=== PATIENT | male | born 1935 | race Caucasian/White ===

== ENCOUNTER 2019-09-20 12:51 | Inpatient (IN) | payer MEDICARE, BC ==
[~2019-09-20] VITALS: Ht 182.9 cm; Wt 84.8 kg
--- NOTE | 2019-09-20 12:59 | NUR ---
PCP CALLED 911; THE PATIENT HAS FEVER AT THE OFFICE 100.2 F, THE PATIENT DENIES FEVER OR CHILLS, NO RECENT TRAVEL, NOT AROUND SICK PEOPLE, TO ER BED 8, HOOKED TO MONITOR, CHANGED TO HOSP GOWN, WARM BLANKET PROVIDED, DR ROSALES AT BEDSIDE
[2019-09-20 13:24] LABS: BASOPHILS % (AUTO) 0.4 % (0.0-2.0); HEMATOCRIT 47 % (39-51); LYMPHOCYTES # (AUTO) 0.4 /CMM (0.8-4.8); LYMPHOCYTES % (AUTO) 6.5 % (20.0-44.0); MEAN CORPUSCULAR HGB CONC 34 g/dl (31.0-36.0); MEAN CORPUSCULAR VOLUME 87 fL (80-96); MONOCYTES # (AUTO) 0.5 /CMM (0.1-1.30); MONOCYTES % (AUTO) 8.2 % (2.0-12.0); NEUTROPHILS # (AUTO) 5.3 /CMM (1.8-8.9); NEUTROPHILS % (AUTO) 84.9 % (43.0-81.0); PLATELET COUNT (AUTO) 137 /CMM (150-450); RED BLOOD CELL COUNT(AUTO) 5.41 MIL/uL (4.5-6.0); WHITE BLOOD COUNT (AUTO) 6.2 K/uL (4.3-11.0)
--- NOTE | 2019-09-20 13:40 | NUR ---
GREEN VIRUS SWAB DONE AND SENT TO LAB
[2019-09-20 13:41] LABS: ALANINE AMINOTRANSFERASE 12 U/L (12-78); ALBUMIN 3.6 g/dL (3.4-5.0); ALKALINE PHOSPHATASE 92 U/L (46-116); ASPARTATE AMINOTRANSFERASE 18 U/L (15-37); BILIRUBIN,DIRECT 0.5 mg/dL (0.0-0.2); BILIRUBIN,TOTAL 1.9 mg/dL (0.2-1.0); CALCIUM, SERUM 9.4 mg/dL (8.5-10.1); CARBON DIOXIDE 25 mmol/L (21-32); CHLORIDE 99 mmol/L (98-107); CREATININE 2.1 mg/dL (0.6-1.3); GLUCOSE 118 mg/dL (74-106); POTASSIUM 4.3 mmol/L (3.5-5.1); SODIUM SERUM 134 mmol/L (136-145); TOTAL PROTEIN, SERUM 7.3 g/dL (6.4-8.2); UREA NITROGEN, BLOOD 30 mg/dL (7-18)
[2019-09-20] MEDS ORDERED: VANCOMYCIN 1 GM in IV D5W 250 ML IV ONE (14:00)
[2019-09-20] MEDS ORDERED: CEFEPIME 1 GM in IV D5W 50 ML IV ONE (14:00)
--- NOTE | 2019-09-20 14:51 | NUR ---
PATIENT NOT ABLE TO PROVIDE URINE SAMPLE. MD ETIENNE
--- NOTE | 2019-09-20 15:18 | NUR ---
RECEIVED A CALL FROM LAB. PT IS COVID POSITIVE
--- NOTE | 2019-09-20 16:36 | NUR ---
ROOM 108
--- NOTE | 2019-09-20 16:41 | NUR ---
REPORT GIVEN TO TOMASA JOSÉ OF MS UNIT Addendum: 09/20/19 at 1642 by RBATACLAN REPORT GIVEN TO TOMASA JOSÉ OF TELE UNIT
--- NOTE | 2019-09-20 16:43 | NUR ---
PANEL INTELLIGENCE OPERATIONS PAGED
[2019-09-20] MEDS ORDERED: ACETAMINOPHEN 325 MG TABLET ONE (17:29)
[2019-09-20] MEDS ORDERED: ACETAMINOPHEN 325 MG TABLET PO ONE (17:30)
--- NOTE | 2019-09-20 17:39 | NUR ---
[employer] SOCIAL STUDIES TUTOR PAGED
[2019-09-20 18:11] LABS: C-REACTIVE PROTEIN 11.5 mg/dL (0.0-0.9)
--- NOTE | 2019-09-20 18:43 | NUR ---
RECEIVED PATIENT FROM ER,PAGED ALEC DIAZ FOR ADMISSION ORDERS.
[2019-09-20] MEDS ORDERED: Z GUARD REMEDY 2 OZ OINT TP PRN (19:00)
[2019-09-20] MEDS ORDERED: HYDROCODONE/APAP 5/325MG 1 EACH TABLET PO PRN (19:00)
[2019-09-20] MEDS ORDERED: ONDANSETRON HCL/PF 4 MG/2 ML VIAL IVP PRN (19:00)
[2019-09-20] MEDS ORDERED: ZOLPIDEM TARTRATE 5 MG TABLET PO PRN (19:00)
[2019-09-20] MEDS ORDERED: FEE PK DOSING 1 MIN EA MC ONE (19:18)
--- NOTE | 2019-09-20 19:21 | NUR ---
RN NOTES MADE PT COMFORTABLE, BELONGINGS LIST CHECKED OFF, VITAL SIGNS STABLE, ENDORSED TO ONCOMING SHIFT FOR ELOY
--- NOTE | 2019-09-20 19:30 | NUR ---
RN OPENING NOTE RECEIVED PATIENT IN BED RESTING,ALERT ORIENTED X4 VERBALLY RESPONSIVE KENYAN SPEAKER,ABLE TO MAKE NEEDS KNOWN,NO SOB NOT ACUTE DISTRESS NOTED AT THIS TIME,COVID 19 POSITIVE DROPLET/CONTACT ISOLATION,IV SITE IS ON LEFT AC PERIPHERAL,INTACT, PATENT,BED IN LOWEST POSITION,LOCKED CALL LIGHT WITHIN REACH,CONTINUE TO MONITOR.
[2019-09-20 20:00] VITALS: BP 116/81
[2019-09-20] MEDS: HEPARIN SODIUM, PORCINE 5000 UNITS/1 ML VIAL SQ SCH (21:17)
[2019-09-20] MEDS: IV NS 0.9% 1,000 ML IV PRN (23:31)
[2019-09-21] VITALS: BP 140/86
[2019-09-21] MEDS: CEFEPIME 2 GM in IV D5W 100 ML IV SCH ×2 (01:03→12:29)
[2019-09-21] MEDS: ACETAMINOPHEN 325 MG TABLET PO PRN ×2 (02:57→21:46)
[2019-09-21 04:00] VITALS: BP 120/74
--- NOTE | 2019-09-21 06:00 | NUR ---
RN NOTE URINE COLLECTED AND SENT TO LAB FOR URINE CULTURE.
--- NOTE | 2019-09-21 06:35 | NUR ---
RN CLOSING NOTE RESIDNET IS ALERT ORIENTED X4 VERBALLY RESPONSIVE,KYRGYZ SPEAKER,NO SOB NOT ACUTE DISTRESS NOTED,ON ROOM AIR O2:96% ,HE IS ON IV HYDRATION NS 0.9% @75CC/HR, IV SITE IS ON RIGHT AC INTACT PATENT, ON COVID 19 POSITIVE DROPLET/CONTACT ISOLATION, ALL DUE MEDS GIVEN MD ORDERED,KEPT CLEAN AND DRY ALL THE TIME,KEPT CALL LIGHT WITHIN REACH,ALL NEEDS ATTENDED. Addendum: 09/21/19 at 0649 by JOSELIN DUMONT RN RN CLOSING NOTE RESIDNET IS ALERT ORIENTED X4 VERBALLY RESPONSIVE,KYRGYZ SPEAKER,NO SOB NOT ACUTE DISTRESS NOTED,ON ROOM AIR O2:96% ,HE IS ON IV HYDRATION NS 0.9% @75CC/HR, IV SITE IS ON RIGHT AC INTACT PATENT, ON COVID 19 POSITIVE DROPLET/CONTACT ISOLATION, ALL DUE MEDS GIVEN MD ORDERED,KEPT CLEAN AND DRY ALL THE TIME,KEPT CALL LIGHT WITHIN REACH,ALL NEEDS ATTENDED, ENDORSE NEXT COMING SHIFT FOR CONTINUATION OF CARE.
[2019-09-21 06:41] LABS: BASOPHILS % (AUTO) 0.3 % (0.0-2.0); EOSINOPHILS % (AUTO) 0.4 % (0.0-6.0); HEMATOCRIT 43 % (39-51); HEMOGLOBIN 14.8 g/dL (13.5-17.5); LYMPHOCYTES # (AUTO) 0.5 /CMM (0.8-4.8); LYMPHOCYTES % (AUTO) 9.2 % (20.0-44.0); MEAN CORPUSCULAR HGB CONC 34 g/dl (31.0-36.0); MEAN CORPUSCULAR VOLUME 86 fL (80-96); MONOCYTES # (AUTO) 0.5 /CMM (0.1-1.30); MONOCYTES % (AUTO) 9.8 % (2.0-12.0); NEUTROPHILS # (AUTO) 4.5 /CMM (1.8-8.9); NEUTROPHILS % (AUTO) 80.3 % (43.0-81.0); PLATELET COUNT (AUTO) 118 /CMM (150-450); WHITE BLOOD COUNT (AUTO) 5.6 K/uL (4.3-11.0)
[2019-09-21 06:47] LABS: ALANINE AMINOTRANSFERASE 11 U/L (12-78); ALKALINE PHOSPHATASE 67 U/L (46-116); ASPARTATE AMINOTRANSFERASE 20 U/L (15-37); BILIRUBIN,TOTAL 1.3 mg/dL (0.2-1.0); CALCIUM, SERUM 8.3 mg/dL (8.5-10.1); CARBON DIOXIDE 22 mmol/L (21-32); CHLORIDE 99 mmol/L (98-107); CREATININE 1.8 mg/dL (0.6-1.3); GLUCOSE 112 mg/dL (74-106); MAGNESIUM 2.1 mg/dL (1.8-2.4); PHOSPHORUS 2.3 mg/dL (2.5-4.9); POTASSIUM 3.9 mmol/L (3.5-5.1); SODIUM SERUM 131 mmol/L (136-145); TOTAL PROTEIN, SERUM 6.2 g/dL (6.4-8.2); UREA NITROGEN, BLOOD 33 mg/dL (7-18)
[2019-09-21 06:51] LABS: D-DIMER 23.87 mg/L(FEU (0.17-0.50)
[2019-09-21 07:11] LABS: CHOLESTEROL 96 mg/dL (<200); CREATINE KINASE, TOTAL 285 U/L (39-308); FERRITIN 426 ng/mL (8-388); HDL CHOLESTEROL 33 mg/dL (40-60); LDL 66 mg/dL (0-99); THYROID STIMULATING HORMONE 1.384 uIU/mL (0.358-3.74); TRIGLYCERIDES 71 mg/dL (30-150)
[2019-09-21 07:42] LABS: C-REACTIVE PROTEIN 12.9 mg/dL (0.0-0.9)
[2019-09-21 08:00] VITALS: BP 131/91
--- NOTE | 2019-09-21 08:00 | NUR ---
WIPER BLENDER OPENING NOTES RECEIVED PATIENT IN BED RESTING,ALERT ORIENTED X4 VERBALLY RESPONSIVE. KOREAN SPEAKER BUT ABLE TO UNDERSTAND [place]. PT IS ON ISOLATION D/T POSITIVE COVID RESULTS. MAINTAINED ISOLATION PRECAUTIONS. NO CARDIAC OR RESPIRATORY DISTRESS NOTED. NO SOB NOTED. SATURATING WELL ON ROOM AIR. BREATHING EVEN AND UNLABORED. IV ACCESS NOTED ON THE R AC G18. INTACT AND PATNET ANF FLUSHING WELL. NO S/S OF INFECTION OR INFILTRATION NOTED. SAFETY PRECAUTIONS IN PLACE. BED LOCKED AND IN LOW POSITION. SIDE RAILS UP X2. BED ALARM ON. CALL LIGHT WITHIN REACH. WILL CONT TO MONITOR.
[2019-09-21] MEDS: HEPARIN SODIUM, PORCINE 5000 UNITS/1 ML VIAL SQ SCH (09:00)
[2019-09-21 09:51] LABS: APPEARANCE,URINE CLEAR (CLEAR); BILIRUBIN,URINE NEGATIVE (NEGATIVE); BLOOD, URINE MODERATE Ery/uL (NEGATIVE); COLOR,URINE YELLOW (YELLOW); KETONES,URINE NEGATIVE (NEGATIVE); LEUKOCYTE ESTERASE ,URINE NEGATIVE (NEGATIVE); NITRITE, URINE NEGATIVE (NEGATIVE); PROTEIN,URINE 100 mg/dl (NEGATIVE); UGLUCOSE NEGATIVE (NEGATIVE); UROBILINOGEN,URINE 0.2 EU/dL (0.2)
[2019-09-21 11:04] LABS: BACTERIA,URINE Few /HPF (None Seen); COARSE GRANULAR CASTS,URINE Few /LPF (None Seen); SQUAMOUS EPITHELIAL CELL,UR Few /HPF (None Seen)
[2019-09-21] MEDS: APIXABAN 2.5 MG TABLET PO SCH ×2 (13:27→21:47)
[2019-09-21] MEDS: VANCOMYCIN 1 GM in IV D5W 250 ML IV SCH (14:40)
[2019-09-21] MEDS: IV NS 0.9% 1,000 ML IV PRN (15:49)
--- NOTE | 2019-09-21 19:00 | NUR ---
HOME MEDS HOME MEDS PROVIDED BY [PT DAUGHTER JD FOLLOWS: TAMSULOSIN 0.4MG QD NORVASC 5MG QD ELIQUIS 5MG QD METOPROLOL 50MG QD CRESTOR 20MG QD VIT D3 1000UNITS QD VIT B12 1500MCG QD ENDORSED TO SENIOR FIELD ENGINEER NURSE TO INPUT IN EMR.
--- NOTE | 2019-09-21 19:35 | NUR ---
STOCK CLERK OPENING NOTES PATIENT SLEEPING, EASY TO AWAKEN. A/OX4. ON RA; NO S/S OF ACUTE RESPIRATORY DISTRESS; BREATHING IS EVEN AND UNLABORED. NO C/O PAIN AT THIS TIME. TELE MONITOR READING A-FIB HEART RATE 110. IV PRESENT ON RIGHT AC, SIZE 18, INTACT & PATENT, NS RUNNING AT 75 ML/HR. CONTACT AND DROPLET PRECAUTIONS IN PLACE FOR POSITIVE COVID 19. SAFETY MEASURES IN PLACE AND PATIENT'S NEEDS MET. BED LOCKED, ALARM ON, SIDE RAILS X2, CALL LIGHT WITHIN REACH. WILL CONTINUE TO MONITOR.
--- NOTE | 2019-09-21 19:58 | NUR ---
CITY LIBRARY DIRECTOR CLOSING NOTE PATIENT IN BED RESTING,ALERT ORIENTED X4 VERBALLY RESPONSIVE. HUNGARIAN SPEAKER BUT ABLE TO UNDERSTAND OCCITAN. PT IS ON ISOLATION D/T POSITIVE COVID RESULTS. PT REMAINED AFEBRILE. MAINTAINED ISOLATION PRECAUTIONS. NO CARDIAC OR RESPIRATORY DISTRESS NOTED. NO SOB NOTED. SATURATING WELL ON ROOM AIR. BREATHING EVEN AND UNLABORED. IV ACCESS NOTED ON THE R AC G18. INTACT AND PATNET ANF FLUSHING WELL. NO S/S OF INFECTION OR INFILTRATION NOTED. SAFETY PRECAUTIONS IN PLACE. BED LOCKED AND IN LOW POSITION. SIDE RAILS UP X2. BED ALARM ON. CALL LIGHT WITHIN REACH. WILL CONT TO MONITOR.
[2019-09-21 20:00] VITALS: BP 140/71
[2019-09-21] MEDS ORDERED: K PHOS NEUTRAL 250 MG TABLET PO ONE (21:00)
--- NOTE | 2019-09-21 21:46 | NUR ---
VALIDATION ANALYST NOTES PATIENT'S TEMP 100.1. COOLING MEASURES PROVIDED AND PRN TYLENOL 650 MG PO GIVEN. WILL CONTINUE TO MONITOR.
[2019-09-22] VITALS: BP 108/80
--- NOTE | 2019-09-22 | NUR ---
MILITARY PROFESSIONAL NOTES PATIENT'S TEMP 98.2.
[2019-09-22] MEDS: CEFEPIME 2 GM in IV D5W 100 ML IV SCH ×2 (01:01→12:11)
[2019-09-22] MEDS ORDERED: AMLO5TAB4 PO (02:33)
[2019-09-22] MEDS ORDERED: CYAN500T65 GT (02:33)
[2019-09-22] MEDS ORDERED: ROSU20TA2 PO (02:33)
[2019-09-22] MEDS ORDERED: APIX5TAB PO (02:33)
[2019-09-22] MEDS ORDERED: CHOL10002 PO (02:33)
[2019-09-22] MEDS ORDERED: METO-357 PO (02:33)
[2019-09-22] MEDS ORDERED: TAMS-12 PO (02:33)
[2019-09-22 04:00] VITALS: BP 130/89
[2019-09-22] MEDS: IV NS 0.9% 1,000 ML IV PRN ×2 (04:33→20:40)
[2019-09-22 06:28] LABS: BASOPHILS % (AUTO) 0.4 % (0.0-2.0); EOSINOPHILS % (AUTO) 0.2 % (0.0-6.0); HEMATOCRIT 45 % (39-51); LYMPHOCYTES # (AUTO) 0.7 /CMM (0.8-4.8); LYMPHOCYTES % (AUTO) 11.2 % (20.0-44.0); MEAN CORPUSCULAR HGB CONC 34 g/dl (31.0-36.0); MEAN CORPUSCULAR VOLUME 86 fL (80-96); MONOCYTES # (AUTO) 0.6 /CMM (0.1-1.30); MONOCYTES % (AUTO) 10.7 % (2.0-12.0); NEUTROPHILS # (AUTO) 4.5 /CMM (1.8-8.9); NEUTROPHILS % (AUTO) 77.5 % (43.0-81.0); PLATELET COUNT (AUTO) 119 /CMM (150-450); RED BLOOD CELL COUNT(AUTO) 5.16 MIL/uL (4.5-6.0); WHITE BLOOD COUNT (AUTO) 5.8 K/uL (4.3-11.0)
--- NOTE | 2019-09-22 06:55 | NUR ---
SLAB LIFTING SUPERVISOR CLOSING NOTES PATIENT AWAKE IN BED. A/OX4. ON 2L NC. NO S/S OF ACUTE RESPIRATORY DISTRESS; BREATHING IS EVEN AND UNLABORED. NO C/O PAIN AT THIS TIME. TELE MONITOR READING A-FIB HEART RATE 96. IV PRESENT ON RIGHT AC, SIZE 18, INTACT & PATENT, NS RUNNING AT 75 ML/HR. SAFETY MEASURES IN PLACE AND PATIENT'S NEEDS MET. BED LOCKED, ALARM ON, SIDE RAILS X2, CALL LIGHT WITHIN REACH. WILL ENDORSE TO DAY SHIFT NURSE PLAN OF CARE.
[2019-09-22 07:01] LABS: ALANINE AMINOTRANSFERASE 14 U/L (12-78); ALBUMIN 2.8 g/dL (3.4-5.0); ALKALINE PHOSPHATASE 63 U/L (46-116); ASPARTATE AMINOTRANSFERASE 23 U/L (15-37); BILIRUBIN,TOTAL 1.3 mg/dL (0.2-1.0); CALCIUM, SERUM 8.3 mg/dL (8.5-10.1); CARBON DIOXIDE 24 mmol/L (21-32); CHLORIDE 98 mmol/L (98-107); GLUCOSE 107 mg/dL (74-106); MAGNESIUM 2.2 mg/dL (1.8-2.4); PHOSPHORUS 3.7 mg/dL (2.5-4.9); POTASSIUM 3.6 mmol/L (3.5-5.1); SODIUM SERUM 131 mmol/L (136-145); TOTAL PROTEIN, SERUM 6.4 g/dL (6.4-8.2); UREA NITROGEN, BLOOD 32 mg/dL (7-18)
[2019-09-22 07:03] LABS: CREATINE KINASE, TOTAL 75 U/L (39-308)
[2019-09-22 08:00] VITALS: BP 126/88
--- NOTE | 2019-09-22 08:10 | NUR ---
PASTOR RN OPENING NOTES PATIENT IS AWAKE . A/OX4. ON RA; NO S/S OF ACUTE RESPIRATORY DISTRESS; BREATHING IS EVEN AND UNLABORED. TELE MONITOR READING SINUS RTHYM HEART RATE 81. IV PRESENT ON RIGHT AC, SIZE 18, INTACT & PATENT, NS RUNNING AT 75 ML/HR. CONTACT AND DROPLET PRECAUTIONS IN PLACE FOR POSITIVE COVID 19. SAFETY MEASURES IN PLACE AND PATIENT'S NEEDS MET. BED LOCKED, ALARM ON, SIDE RAILS X2, CALL LIGHT WITHIN REACH. WILL CONTINUE TO MONITOR.
[2019-09-22] MEDS: APIXABAN 2.5 MG TABLET PO SCH ×2 (08:37→17:12)
[2019-09-22] MEDS ORDERED: HYDROCORTISONE SOD SUCCINATE 100 MG/2 ML VIAL IV SCH (09:00)
[2019-09-22] MEDS: DEXAMETHASONE SOD PHOSPHATE 4 MG/ML VIAL IV SCH (10:44)
[2019-09-22 12:00] VITALS: BP 133/77
[2019-09-22] MEDS: VANCOMYCIN 1 GM in IV D5W 250 ML IV SCH (14:10)
[2019-09-22 16:00] VITALS: BP 118/81
--- NOTE | 2019-09-22 19:05 | NUR ---
PASTOR RN CLOSING NOTES PATIENT AWAKE IN BED. A/OX4. ON 2L NC. NO S/S OF ACUTE RESPIRATORY DISTRESS; BREATHING IS EVEN AND UNLABORED. NO C/O PAIN AT THIS TIME. TELE MONITOR READING NS RATE 96. IV PRESENT ON RIGHT AC, SIZE 18, INTACT & PATENT, NS RUNNING AT 75 ML/HR. SAFETY MEASURES IN PLACE AND PATIENT'S NEEDS MET. BED LOCKED, ALARM ON, SIDE RAILS X2, CALL LIGHT WITHIN REACH. WILL ENDORSE TO HEAD SAMPLER NURSE FOR ELOY
[2019-09-22 20:00] VITALS: BP 108/70
[2019-09-23] VITALS: BP 119/74
[2019-09-23] MEDS: CEFEPIME 2 GM in IV D5W 100 ML IV SCH ×2 (01:46→13:05)
[2019-09-23 04:00] VITALS: BP 114/73
[2019-09-23] MEDS: VANCOMYCIN 1 GM in IV D5W 250 ML IV SCH (07:40)
[2019-09-23 08:00] VITALS: BP 138/91
--- NOTE | 2019-09-23 08:00 | NUR ---
RN Opening Received patient in bed AO x 3-4, Lithuanian speaking, able to responds all stimuli. Does no c/o pain or discomfort, Respiratory even and unlabored with oxygen at 2LPM, O2sat 93%, no distress observed. Skin is warm to touch, kept clean/dry, intact IV site. Keep bed in locked with elevated head of bed for secure airway and aspiration precaution. Call light within reach, will continue to monitor.
[2019-09-23 08:05] LABS: BASOPHILS % (AUTO) 0.2 % (0.0-2.0); HEMATOCRIT 44 % (39-51); HEMOGLOBIN 14.9 g/dL (13.5-17.5); LYMPHOCYTES # (AUTO) 0.4 /CMM (0.8-4.8); LYMPHOCYTES % (AUTO) 6.2 % (20.0-44.0); MEAN CORPUSCULAR HGB CONC 34 g/dl (31.0-36.0); MEAN CORPUSCULAR VOLUME 86 fL (80-96); MONOCYTES # (AUTO) 0.5 /CMM (0.1-1.30); MONOCYTES % (AUTO) 7.8 % (2.0-12.0); NEUTROPHILS # (AUTO) 5.1 /CMM (1.8-8.9); NEUTROPHILS % (AUTO) 85.8 % (43.0-81.0); PLATELET COUNT (AUTO) 129 /CMM (150-450); RED BLOOD CELL COUNT(AUTO) 5.16 MIL/uL (4.5-6.0)
[2019-09-23 09:02] LABS: ALANINE AMINOTRANSFERASE 18 U/L (12-78); ALBUMIN 2.6 g/dL (3.4-5.0); ALKALINE PHOSPHATASE 61 U/L (46-116); ASPARTATE AMINOTRANSFERASE 26 U/L (15-37); BILIRUBIN,TOTAL 0.9 mg/dL (0.2-1.0); CALCIUM, SERUM 8.4 mg/dL (8.5-10.1); CARBON DIOXIDE 22 mmol/L (21-32); CHLORIDE 97 mmol/L (98-107); CREATININE 1.7 mg/dL (0.6-1.3); GLUCOSE 116 mg/dL (74-106); MAGNESIUM 1.9 mg/dL (1.8-2.4); POTASSIUM 4.2 mmol/L (3.5-5.1); SODIUM SERUM 130 mmol/L (136-145); TOTAL PROTEIN, SERUM 6.3 g/dL (6.4-8.2); UREA NITROGEN, BLOOD 35 mg/dL (7-18)
[2019-09-23] MEDS: DEXAMETHASONE SOD PHOSPHATE 4 MG/ML VIAL IV SCH (09:35)
[2019-09-23] MEDS: APIXABAN 2.5 MG TABLET PO SCH ×2 (09:37→17:48)
[2019-09-23 12:00] VITALS: BP 144/89
[2019-09-23 14:20] LABS: PTH, INTACT 61 pg/mL (15-65)
[2019-09-23 16:00] VITALS: BP 140/91
--- NOTE | 2019-09-23 18:30 | NUR ---
RN Closing note Patient in bed comfortably, does no appears pain or distress. Skin is warm to touch, kept clean/dry, intact IV site. Respiratory even and unlabored with oxygen at 2LPM, no distress observed. Keep bed in locked with elevated HOB for secure airway and aspiration precaution, call light within reach, will endorse material handler 1st shift.
--- NOTE | 2019-09-23 19:26 | NUR ---
TELE/RN OPENING NOTES RECEIVED PATIENT IN BED, ON TELE ON AFIB, PATIENT OPENS EYES AND NODS WHEN ASKED FOR SIMPLE QUESTIONS, SKIN WARM TO TOUCH, ON ISOLATION PRECAUTION FOR COVID POSITIVE RESULT MONITORING. FOR ANY CHANGES. RECEIVED REPORT FROM AM RN FOR ELOY, PATIENT WITH RIGHT ABOVE KNEE AMPUTATION, REQUIRE ASSISTANCE FOR SAFETY. FAMILY INVOLVE AND HAD PT WITH NOTE FOR HI COMPLEX, DME WITH CANE AND AND RIGHT ARTIFICIAL LEG . TO MONITOR AND CONTINUE CARE WITH ANTIBIOTICS.BED LOCKED, CALL LIGHTS WITHIN REACH. WILL MONITOR.
[2019-09-23 20:00] VITALS: BP 146/96
--- NOTE | 2019-09-23 20:05 | NUR ---
TELE/RN NOTES PATIENT ON IV ANTIBIOTIC THERAPY WITH IV FLUIDS AT A RATE OF 75 ML/HR, IV SITE ON RIGHT HAND GAUGE 20 PATENT. CONDOM CATHETER DRAINING LIGHT YELLOW COLOR URINE.
--- NOTE | 2019-09-23 20:10 | NUR ---
TELE/RN NOTES PATIENT FAMILY INVOLVE AND CALLED MADE BY DAUGHTER AND DAUGHTER IN LAW, MONIORING FOR ANY CHANGES.
[2019-09-23] MEDS: IV NS 0.9% 1,000 ML IV PRN (20:49)
[2019-09-23] MEDS: ACETAMINOPHEN 325 MG TABLET PO PRN (21:37)
--- NOTE | 2019-09-23 21:37 | NUR ---
TYLENOL 650 MG PO GIVEN FOR ELEVATED TEMPERATURE NOTED 100.5 DEG F.
[2019-09-24] VITALS: BP 130/81
[2019-09-24] MEDS: CEFEPIME 2 GM in IV D5W 100 ML IV SCH ×2 (00:23→13:16)
[2019-09-24] MEDS: VANCOMYCIN 1 GM in IV D5W 250 ML IV SCH (01:22)
[2019-09-24 04:00] VITALS: BP 129/81
--- NOTE | 2019-09-24 06:18 | NUR ---
108-1 TELE/RN NOTES ON TELE MONITORE, AFIB, SLEPT DURING THE SHIFT, ON OXYGEN VIA NC AT 2 LITER, ATENDED ALL NEED, ADMINISTERED IV ANTIBIOTIC THERAPY, MONITORED FOR ANY CHANGES, BED LOCKED, MONITORED.WILL ENDORSE TO AM RN FOR ELOY.
--- NOTE | 2019-09-24 06:38 | NUR ---
TELE/RN NOTES FAMILY, SON MARAL CALLED TO INFORM ABOUT MEDICAL HISTORY OF PATIENT AND UPON ADMISSION DUE TO DESCENDED [facility] AND HAVE TAKEN A MEDICATION THAT SON CAN NOT DETERMINE WHAT TYPE BUT SAID SOME TYPE OF HYPERTENSIVE MEDICATION GIVEN AT [facility] PATIENT THAT CAUSED PATIENT TO BE INCOHERENT AND DISORIENTED AND SON IS WORRIED THAT THERE MIGHT BE GIVEN THAT MEDICATION HERE THAT MAY CAUSE HIS DAD'S REPORTED WEAKNESS, SON WAS AWARE THAT PATIENT IS COVID POSITIVE AND MAY EXHIBIT SYMPTOMS OF [place]ISE BUT REQUEST TO FOLLOW UP WITH [facility] IF POSSIBLE.WILL INFORM F/U NURSE.
--- NOTE | 2019-09-24 07:40 | NUR ---
RN NOTES RECEIVED PATIENT IN BED RESTING COMFORTABLY IN MODERATE HIGH BACK REST, ON TELE MONITOR WITH CURRENT READING OF AFIB, PATIENT OPENS EYES AND NODS WHEN ASKED FOR SIMPLE QUESTIONS, IV FLUIDS ON RAC#18 WITH NS RUNNING @75 ML/HR. PATENT AND INTACT WITH NO S/SX OF INFILTRATION. SAFETY MEASURES IN PLACE, BED LOCKED IN LOWEST POSITION WITH SIDE RAILS UP X3, CALL LIGHTS WITHIN REACH. WILL CONTINUE TO MONITOR.
[2019-09-24 08:00] VITALS: BP 133/82
[2019-09-24] MEDS: DEXAMETHASONE SOD PHOSPHATE 4 MG/ML VIAL IV SCH (08:41)
[2019-09-24] MEDS: APIXABAN 2.5 MG TABLET PO SCH ×2 (08:44→16:22)
[2019-09-24 09:46] LABS: BASOPHILS % (AUTO) 0.2 % (0.0-2.0); EOSINOPHILS % (AUTO) 0.1 % (0.0-6.0); HEMATOCRIT 45 % (39-51); HEMOGLOBIN 14.9 g/dL (13.5-17.5); LYMPHOCYTES # (AUTO) 0.6 /CMM (0.8-4.8); LYMPHOCYTES % (AUTO) 11.1 % (20.0-44.0); MEAN CORPUSCULAR HGB CONC 33 g/dl (31.0-36.0); MEAN CORPUSCULAR VOLUME 86 fL (80-96); MONOCYTES # (AUTO) 0.5 /CMM (0.1-1.30); MONOCYTES % (AUTO) 9.4 % (2.0-12.0); NEUTROPHILS # (AUTO) 4.6 /CMM (1.8-8.9); NEUTROPHILS % (AUTO) 79.2 % (43.0-81.0); PLATELET COUNT (AUTO) 119 /CMM (150-450); RED BLOOD CELL COUNT(AUTO) 5.16 MIL/uL (4.5-6.0); WHITE BLOOD COUNT (AUTO) 5.8 K/uL (4.3-11.0)
[2019-09-24 10:44] LABS: CALCIUM, SERUM 8.3 mg/dL (8.5-10.1); CARBON DIOXIDE 22 mmol/L (21-32); CHLORIDE 96 mmol/L (98-107); GLUCOSE 129 mg/dL (74-106); MAGNESIUM 2.1 mg/dL (1.8-2.4); PHOSPHORUS 3.1 mg/dL (2.5-4.9); POTASSIUM 3.9 mmol/L (3.5-5.1); SODIUM SERUM 127 mmol/L (136-145); UREA NITROGEN, BLOOD 35 mg/dL (7-18)
[2019-09-24 10:53] LABS: FERRITIN 648 ng/mL (8-388)
[2019-09-24 12:00] VITALS: BP 124/78
[2019-09-24] MEDS ORDERED: VANC1PLA9 IV (15:36)
[2019-09-24] MEDS ORDERED: APIX2.5T PO (15:36)
[2019-09-24] MEDS ORDERED: CEFE2FRO IV (15:36)
[2019-09-24 16:00] VITALS: BP_SYST 107; BP_SYST 124; BP_DIAS 72; BP_DIAS 78
--- NOTE | 2019-09-24 18:15 | NUR ---
RN DISCHARGED NOTES PATIENT DISCHARGED IN STABLE CONDITION. A/O X4. ABLE TO MAKE NEEDS KNOWN, V/S TAKEN, STABLE AND RECORDED. SKIN IS INTACT. PATIENT WILL BE DC WITH IV ACCESS ON RIGHT HAND #22 AND RAC#18. NAME ARM BAND REMOVED. ALL BELONGINGS CHECKED AND SIGNED. HEALTH TEACHINGS/DISCHARGED INSTRUCTIONS GIVEN AND VERBALIZED UNDERSTANDING. PRESCRIPTION MEDICATION GIVEN TO PATIENT. REPORT GIVEN TO [facility] [address] [facility] AT [facility], SPOKE TO SON AND MADE AWARE OF DISCHARGE. PATIENT LEFT UNIT VIA GURNEY WITH 2 AMBULANCE STAFF. NO ACUTE SIGNS OF DISTRESS NOTED DURING DISCHARGE. CHARGE NURSE AWARE OF DISCHARGED.
[2019-09-26 08:20] LABS: *SPE ALBUMIN 2.9 g/dL (2.9-4.4); *SPE ALPHA-1-GLOBULIN 0.3 g/dL (0.0-0.4); *SPE BETA GLOBULIN 0.8 g/dL (0.7-1.3); *SPE GLOBULIN, TOTAL 2.9 g/dL (2.2-3.9); *SPE M-SPIKE Not Observed g/dL (Not Observed); *SPEGAMMA GLOBULIN 0.8 g/dL (0.4-1.8)
== END 2019-09-24 18:25 | DRG 871 ==
LOC: ER 12:54 → TELE1 18:36
PROVIDERS: ADMIT Hospitalist; ATTEND Hospitalist
DX: A41.89 Other specified sepsis (principal); U07.1 COVID-19; J12.89 Other viral pneumonia; N17.0 Acute kidney failure with tubular necrosis; J15.9 Unspecified bacterial pneumonia; E87.1 Hypo-osmolality and hyponatremia; I48.20 Chronic atrial fibrillation, unspecified; I12.9 Hypertensive chronic kidney disease with stage 1 through stage 4 chronic kidney disease, or unspecified chronic kidney disease; N18.9 Chronic kidney disease, unspecified; Z88.5 Allergy status to narcotic agent; E78.5 Hyperlipidemia, unspecified; E80.6 Other disorders of bilirubin metabolism; G89.29 Other chronic pain; E86.1 Hypovolemia; Z90.49 Acquired absence of other specified parts of digestive tract; Z79.01 Long term (current) use of anticoagulants; Z87.891 Personal history of nicotine dependence; K83.8 Other specified diseases of biliary tract; N28.1 Cyst of kidney, acquired; I71.4 Abdominal aortic aneurysm, without rupture; R65.20 Severe sepsis without septic shock; D69.6 Thrombocytopenia, unspecified; R09.02 Hypoxemia
CPT/HCPCS: 36415; 71045-TC; 76705-TC; 80048-TC; 80053-TC; 80061-TC; 80076-TC; 80202-TC; 81000-TC; 82550-TC; 82728-TC; 83605-TC; 83615-TC; 83690-TC; 83735-TC; 83970; 84100-TC; 84155; 84165; 84443-TC; 84484-TC; 85025-TC; 85378-TC; 85385-TC; 85730-TC; 86140-TC; 87040-TC; 87081-TC; 87086-TC; 97112-TC; 97530-TC; A4349; G0378; J0692; J1100; J1644; J3370; J7030; J7060

== ENCOUNTER 2020-11-21 10:04 | Outpatient (CLI) | payer MEDICARE, BC ==
[~2020-11-21 10:04] MED LIST: AMLO5TAB4 PO; APIX2.5T PO; CEFE2FRO IV; CHOL100043 PO; CYAN500T64 GT; METO-357 PO; ROSU20TA2 PO; TAMS-12 PO; VANC1PLA9 IV
[2020-11-21 11:51] LABS: BASOPHILS % (AUTO) 0.5 % (0.0-2.0); BILIRUBIN,URINE NEGATIVE (NEGATIVE); COLOR,URINE YELLOW (YELLOW); EOSINOPHILS % (AUTO) 4.2 % (0.0-6.0); HEMATOCRIT 47 % (39-51); HEMOGLOBIN 15.9 g/dL (13.5-17.5); LEUKOCYTE ESTERASE ,URINE NEGATIVE (NEGATIVE); LYMPHOCYTES # (AUTO) 1.7 K/uL (0.8-4.8); LYMPHOCYTES % (AUTO) 27.5 % (20.0-44.0); MEAN CORPUSCULAR HGB CONC 34 g/dl (31.0-36.0); MEAN CORPUSCULAR VOLUME 90 fL (80-96); MONOCYTES # (AUTO) 0.5 K/uL (0.1-1.30); MONOCYTES % (AUTO) 7.6 % (2.0-12.0); NEUTROPHILS # (AUTO) 3.7 K/uL (1.8-8.9); NEUTROPHILS % (AUTO) 60.2 % (43.0-81.0); NITRITE, URINE NEGATIVE (NEGATIVE); PLATELET COUNT (AUTO) 152 K/uL (150-450); PROTEIN,URINE 100 mg/dl (NEGATIVE); RED BLOOD CELL COUNT(AUTO) 5.18 MIL/uL (4.5-6.0); UGLUCOSE NEGATIVE (NEGATIVE); UROBILINOGEN,URINE 0.2 EU/dL (0.2); WHITE BLOOD COUNT (AUTO) 6.2 K/uL (4.3-11.0)
[2020-11-21 13:46] LABS: C-REACTIVE PROTEIN 0.9 mg/dL (0.0-0.9); CHOLESTEROL 154 mg/dL (<200); HDL CHOLESTEROL 60 mg/dL (40-60); LDL 87 mg/dL (0-99); TRIGLYCERIDES 80 mg/dL (30-150)
[2020-11-21 13:50] LABS: BACTERIA,URINE Few /HPF (None Seen); SQUAMOUS EPITHELIAL CELL,UR Few /HPF (None Seen)
[2020-11-21 13:52] LABS: WBC,URINE 0-2 /HPF (0-3)
[2020-11-21 14:03] LABS: ALANINE AMINOTRANSFERASE 18 U/L (12-78); ALKALINE PHOSPHATASE 108 U/L (46-116); ASPARTATE AMINOTRANSFERASE 13 U/L (15-37); BILIRUBIN,TOTAL 0.9 mg/dL (0.2-1.0); CALCIUM, SERUM 8.8 mg/dL (8.5-10.1); CARBON DIOXIDE 27 mmol/L (21-32); CHLORIDE 104 mmol/L (98-107); GLUCOSE 97 mg/dL (74-106); MAGNESIUM 2.5 mg/dL (1.8-2.4); PHOSPHORUS 3.4 mg/dL (2.5-4.9); POTASSIUM 4.5 mmol/L (3.5-5.1); SODIUM SERUM 139 mmol/L (136-145); UREA NITROGEN, BLOOD 30 mg/dL (7-18); URINE TOTAL PROTEIN 313.7 mg/dL (0-11.9)
== END 2020-11-21 23:59 | disposition home or self-care (01) ==
LOC: MSC 10:04
PROVIDERS: ATTEND Internal Medicine
DX: I12.9 Hypertensive chronic kidney disease with stage 1 through stage 4 chronic kidney disease, or unspecified chronic kidney disease (principal); N18.30 Chronic kidney disease, stage 3 unspecified; M54.5 Low back pain; E83.9 Disorder of mineral metabolism, unspecified; Z89.512 Acquired absence of left leg below knee; C61 Malignant neoplasm of prostate; Z92.21 Personal history of antineoplastic chemotherapy; E78.5 Hyperlipidemia, unspecified; K21.9 Gastro-esophageal reflux disease without esophagitis; Z79.52 Long term (current) use of systemic steroids; Z79.01 Long term (current) use of anticoagulants; Z79.899 Other long term (current) drug therapy
CPT/HCPCS: 36415; 72110; 80053; 80061; 81001; 82043; 82306; 82570; 83036; 83735; 84100; 84155; 85025; 85652; 86140; G0463

== ENCOUNTER 2020-11-26 14:00 | Outpatient (CLI) | payer MEDICARE, BC | END 2020-11-26 23:59 | disposition home or self-care (01) | LOC: MSC 14:00 | PROVIDERS: ATTEND Internal Medicine | DX: I12.9 Hypertensive chronic kidney disease with stage 1 through stage 4 chronic kidney disease, or unspecified chronic kidney disease (principal); N18.30 Chronic kidney disease, stage 3 unspecified; M54.5 Low back pain; E83.9 Disorder of mineral metabolism, unspecified; E78.5 Hyperlipidemia, unspecified; C61 Malignant neoplasm of prostate; K21.9 Gastro-esophageal reflux disease without esophagitis; Z79.01 Long term (current) use of anticoagulants; Z79.52 Long term (current) use of systemic steroids ==

== ENCOUNTER 2021-02-27 08:47 | Outpatient (CLI) | payer MEDICARE, BC | END 2021-02-27 23:59 | disposition home or self-care (01) | LOC: US 08:47 | PROVIDERS: ATTEND Internal Medicine | DX: N28.1 Cyst of kidney, acquired (principal); N18.9 Chronic kidney disease, unspecified | CPT/HCPCS: 76770-TC ==

== ENCOUNTER 2021-02-27 13:00 | Outpatient (CLI) | payer MEDICARE, BC | END 2021-02-27 23:59 | disposition home or self-care (01) | LOC: MSC 13:00 | PROVIDERS: ATTEND Internal Medicine | DX: I12.9 Hypertensive chronic kidney disease with stage 1 through stage 4 chronic kidney disease, or unspecified chronic kidney disease (principal); N18.30 Chronic kidney disease, stage 3 unspecified; Z79.52 Long term (current) use of systemic steroids; Z79.01 Long term (current) use of anticoagulants; M54.50 Low back pain, unspecified; E83.9 Disorder of mineral metabolism, unspecified; M89.9 Disorder of bone, unspecified; E78.5 Hyperlipidemia, unspecified; C61 Malignant neoplasm of prostate; K21.9 Gastro-esophageal reflux disease without esophagitis; Z79.899 Other long term (current) drug therapy ==

== ENCOUNTER 2021-05-15 11:41 | Outpatient (CLI) | payer MEDICARE, BC ==
[2021-05-15 12:27] LABS: BASOPHILS % (AUTO) 0.5 % (0.0-2.0); EOSINOPHILS % (AUTO) 7.9 % (0.0-6.0); HEMATOCRIT 42 % (39-51); HEMOGLOBIN 14.2 g/dL (13.5-17.5); LYMPHOCYTES # (AUTO) 1.2 K/uL (0.8-4.8); LYMPHOCYTES % (AUTO) 23.1 % (20.0-44.0); MEAN CORPUSCULAR HGB CONC 34 g/dl (31.0-36.0); MEAN CORPUSCULAR VOLUME 88 fL (80-96); MONOCYTES # (AUTO) 0.3 K/uL (0.1-1.30); MONOCYTES % (AUTO) 6.1 % (2.0-12.0); NEUTROPHILS # (AUTO) 3.3 K/uL (1.8-8.9); NEUTROPHILS % (AUTO) 62.4 % (43.0-81.0); PLATELET COUNT (AUTO) 143 K/uL (150-450); RED BLOOD CELL COUNT(AUTO) 4.82 MIL/uL (4.5-6.0); WHITE BLOOD COUNT (AUTO) 5.3 K/uL (4.3-11.0)
[2021-05-15 14:33] LABS: CALCIUM, SERUM 8.9 mg/dL (8.5-10.1); CARBON DIOXIDE 25 mmol/L (21-32); CHLORIDE 107 mmol/L (98-107); CREATININE 2.3 mg/dL (0.6-1.3); GLUCOSE 138 mg/dL (74-106); SODIUM SERUM 143 mmol/L (136-145); UREA NITROGEN, BLOOD 32 mg/dL (7-18)
[2021-05-15 14:44] LABS: ALANINE AMINOTRANSFERASE 19 U/L (12-78); ALBUMIN 3.3 g/dL (3.4-5.0); ALKALINE PHOSPHATASE 100 U/L (46-116); ASPARTATE AMINOTRANSFERASE 10 U/L (15-37); BILIRUBIN,TOTAL 0.7 mg/dL (0.2-1.0); MAGNESIUM 2.1 mg/dL (1.8-2.4); PHOSPHORUS 3.2 mg/dL (2.5-4.9); TOTAL PROTEIN, SERUM 6.9 g/dL (6.4-8.2)
== END 2021-05-15 23:59 | disposition home or self-care (01) ==
LOC: MSC 11:41
PROVIDERS: ATTEND Internal Medicine
DX: Z09 Encounter for follow-up examination after completed treatment for conditions other than malignant neoplasm (principal); R31.9 Hematuria, unspecified; Z96.0 Presence of urogenital implants; I12.9 Hypertensive chronic kidney disease with stage 1 through stage 4 chronic kidney disease, or unspecified chronic kidney disease; N18.30 Chronic kidney disease, stage 3 unspecified; E83.9 Disorder of mineral metabolism, unspecified; M89.9 Disorder of bone, unspecified; M54.50 Low back pain, unspecified; E78.5 Hyperlipidemia, unspecified; C61 Malignant neoplasm of prostate; K21.9 Gastro-esophageal reflux disease without esophagitis
CPT/HCPCS: 36415; 80053; 83735; 84100; 85025; G0463